=== PATIENT | female | born 1950 | race Caucasian/White ===

== ENCOUNTER 2018-01-09 22:21 | Emergency (ER) | payer MEDICARE, BC ==
[~2018-01-09] VITALS: Ht 157.5 cm; Wt 63.5 kg
--- OUTSIDE RECORDS SUMMARY | 2018-01-09 22:22 | XMS REPORT | Summary of Care ---
Author Author [facility] Address [address] [place] [address] Phone Unavailable Care Team Providers Care Secondary Art Teacher Name Role Phone MARY DELANEY Unavailable Unavailable Unavailable Unavailable Functional Status Name Dates Details Functional status health issues are not documented Status: Name Dates Details Cognitive status health issues are not documented Status: Problems Name Dates Details Hematuria (599.70, R31.9) Status: Active Acute UTI (599.0, N39.0) Status: Active Abnormal urine findings (791.9, R82.90) Status: Active Elevated cholesterol (272.0, E78.00) Status: Active Visit for screening mammogram (V76.12, Z12.31) Status: Active Encounter for hepatitis C screening test for low risk patient (V73.89, Z11.59) Status: Active Advance directive discussed with patient (V65.49, Z71.89) Status: Active At low risk for fall (V49.89, Z78.9) Status: Active Depression screening (V79.0, Z13.89) Status: Active Encounter for mini-mental status examination Status: Active Need for influenza vaccination (V04.81, Z23) Status: Active Hypothyroidism (244.9, E03.9) Status: Active Medications Name Dates Details Aspirin 81 MG TABS Active Calcium TABS * Refills: 0 Active Levothyroxine Sodium 25 MCG Oral Tablet TAKE 1 TABLET BY MOUTH EVERY DAY * Quantity: 90 Refills: 1 FORD P.A., MARY * Start : 18-Feb-2017 Active Allergies and Adverse Reactions Name Dates Details No Known Allergies (Allergy) Status: Active Past Medical History Name Dates Details History of Prediabetes (790.29, R73.03) Status: Resolved Procedures Procedure Dates Details History of Section Completed Immunization Name Dates Details Zoster (Zostavax) on: Aug-2013 Prevnar 13 Intramuscular Suspension on: 08-Jul-2015 Tdap (Adacel) on: Aug-2015 Fluzone Quadrivalent 0.5 ML Intramuscular Suspension on: 23-May-2016 Pneumovax 23 25 MCG/0.5ML Injection Injectable on: 21-Jul-2016 Fluzone Quadrivalent 0.5 ML Intramuscular Suspension Prefilled Syringe Lot #: [id number] on: 20-Jul-2017 Family History Name Dates Details Family history of diabetes mellitus (V18.0, Z83.3) Status: Active Name Dates Details Family history of alcoholism (V17.0, Z81.1) Status: Active Name Dates Details Family history of alcoholism (V17.0, Z81.1) Status: Active Name Dates Details Family history of alcoholism (V17.0, Z81.1) Status: Active Social History Name Dates Details - Status: Name Dates Details Former smoker Vital Signs Date Test Result Details [id number] BP Systolic 124 mm[Hg] Status: Comments: Location: LUE; Position: Sitting BP Diastolic 71 mm[Hg] Status: Comments: Location: LUE; Position: Sitting Height 61 in Status: Weight 149.5 lb Status: Body Mass Index Calculated 28.25 kg/m2 Status: Body Surface Area Calculated 1.67 m2 Status: Temperature 96.7 f Status: Comments: Method: Temporal Heart Rate 76 /min Status: Respiration Rate 16 /min Status: Results Date Description Value Details [id number] [QLH] TSH, 3RD GENERATION TSH 1.520 {uIU/ml} Range: 0.360-3.740 Plan of Care Name Dates Details Planned Observations Planned Goals not documented Planned Encounters Appointment; MARY FORD P.A. On: 18-Jan-2018 8:00 Instructions Name Dates Details Instructions not documented Encounters Appointment; MARY FORD P.A. Encounter Diagnosis: Problem not documented On: 24-Jun-2016 13:00 Appointment; MARY FORD P.A. Encounter Diagnosis: Problem not documented On: 21-Jul-2016 9:15 Appointment; MARY FORD P.A. Encounter Diagnosis: Problem not documented On: 29-Jul-2016 12:30 Appointment; MARY FORD P.A. Encounter Diagnosis: Problem not documented On: 06-Oct-2016 10:00 Appointment; MARY FORD P.A. Encounter Diagnosis: Problem not documented On: 05-Jan-2017 8:30 Appointment; MARY FORD P.A. Encounter Diagnosis: Problem not documented On: 20-Jul-2017 9:00
== END 2018-01-09 23:10 | disposition home or self-care (01) ==
LOC: FSED 22:21
DX: R30.0 Dysuria (principal); N30.90 Cystitis, unspecified without hematuria
CPT/HCPCS: 81003; 99283

== ENCOUNTER 2024-07-24 00:29 | Emergency (ER) | payer BC, MEDICARE ==
[~2024-07-24] VITALS: Ht 157.5 cm; Wt 57.6 kg
[2024-07-24 00:30] VITALS: PULSE 74; RESP 15; TEMP 98
[2024-07-24] MEDS: KETOROLAC TROMETHAMINE 60 MG/2 ML VIAL IM ONE (00:53)
[2024-07-24] MEDS: DEXAMETHASONE SOD PHOS INJ 4 MG/ML SDV IM ONE (00:53)
[2024-07-24 01:02] VITALS: BP 144/67; O2SAT 99
== END 2024-07-24 01:05 | disposition home or self-care (01) ==
LOC: FSED 00:39
DX: M54.31 Sciatica, right side (principal); G58.8 Other specified mononeuropathies; R73.03 Prediabetes; E03.9 Hypothyroidism, unspecified
CPT/HCPCS: 99282; J1100; J1885